=== PATIENT | female | born 1945 | race Caucasian/White ===

== ENCOUNTER 2016-10-22 07:13 | Day surgery (SDC) | payer MEDICARE, OTHER ==
[2016-10-22] VITALS (7 sets, daily range): BP systolic 119–144; BP diastolic 64–74; PULSE 57–81; RESP 10–18; O2SAT 94–100
[~2016-10-22] VITALS: Ht 174 cm; Wt 85.1 kg
[~2016-10-22 07:13] MED LIST: ASCO1500 PO; ASPI325T32 PO; ASTA4CAP PO; CHOL40003 PO; CLOB15CR2 TP; CeFAZolin Inj 2 GM in IV Premix 1 EACH IV ONE; Lactated Ringer's 1,000 ML IV ONE; MAGN400T23 PO; PROZ20 PO; SALM1CAP4 PO; TURM1POW MC; TURM500C3 PO; Vancomycin Inj 1,000 MG in IV Premix 1 EACH IV ONE
[2016-10-22] MEDS ORDERED: Propofol 10,000 mCg/mL 20 mL Inj ONE (07:14)
[2016-10-22] MEDS ORDERED: EPHEDrine/NS 5 mg/mL 5 mL Syringe ONE (07:14)
[2016-10-22] MEDS ORDERED: Glycopyrrolate 0.2 mg/mL 5 mL Inj ONE (07:14)
[2016-10-22] MEDS ORDERED: Ondansetron 2 mg/mL 2 mL Inj ONE (07:14)
[2016-10-22] MEDS ORDERED: Dexamethasone 4 mg/mL Inj ONE (07:14)
[2016-10-22] MEDS ORDERED: Lidocaine PF 1% 30 mL Inj ONE (07:14)
[2016-10-22] MEDS ORDERED: fentaNYL-PF 50 mCg/mL 2 mL Inj ONE (07:14)
--- NOTE | 2016-10-22 08:58 | PCM.HPANE ---
Patient Data Surgeon Admitting Provider: Attending Provider:Jose Ramírez MD Primary Care Physician:Cardiology,[facility] Other Provider:Lizeth Gonzalesingham Anesthesia Reason for Visit Right Knee Arthritis RIGHT KNEE ARTHRITIS Ht/WT & BMI Height (Feet): 5 Height (Inches): 8.50 Weight (Kilograms): 85.1 Body Mass Index 28.00 Allergies Coded Allergies: acetaminophen (Verified Allergy, Unknown, gi upset, 10/18/16) Past Anesthesia History Anesthesia History: Denies:: Abnormal Airway, Anesthesia Reactions, Difficult Intubation, Fam Anesthesia Reaction Diabetes History Hx Diabetes?: No MRSA MRSA: No Medications Hypertension Medication: No Home Meds Incl Beta Padmini: No Reported Medications Ascorbic Acid (Vitamin C)1,500 Mg Tablet.er1,500 Mg PO DAILY 10/18/16 Turmeric Root Extract (Turmeric)500 Mg [id number] Mg PO DAILY 10/18/16 Benedict Oil/[place]-3 Fatty Acids (Benedict Oil 1,000 mg Softgel)1 Each Capsule2 Each PO DAILY 10/18/16 Fluoxetine (Prozac)20 Mg Phqxpos99 Mg PO DAILY Ref 0 10/18/16 Magnesium Oxide (Mag-Oxide)400 Mg [id number] Mg PO DAILY 10/18/16 Clobetasol Propionate 15 Gm Cream..g.15 Gm TP PRN skin irritation 10/18/16 Cholecalciferol (Vitamin D3) (Vitamin D3)4,000 Unit Capsule4,000 Unit PO DAILY 10/18/16 Astaxanthin 4 Mg Capsule8 Mg PO DAILY 10/18/16 Aspirin 325 Mg [id number] Mg PO DAILY #1 BOTTLE 10/18/16 Discontinued Reported Medications Turmeric (Curcumin)1 Gm Powder1 Gm MC DAILY 10/18/16 History History of ENT Problems?: No HEENT History: Denies:: Abnormal Airway Cataracts Difficult Intubation Dysphagia Glaucoma Hearing Problem (slight) Sinus Problem TMJ Hx of Heart Problems?: No Cardiovascular History: Denies:: AICD Abdominal Aortic Aneurism Atrial Fibrillation Cardiac Surgery Edema Heart Murmur Hypertension Irregular Heartbeat Pacemaker Peripheral Vascular Rheumatic Fever Thrombophlebitis Other History/Comments Greater than 4 mets; No CP Hx of Respiratory Problem?: No Respiratory History: Denies:: Asthma COPD Dyspnea Emphysema Oxygen Administration Pneumonia Tuberculosis Use of C-PAP Machine Use of Inhalers / NEBS Hx Neurologic Problems?: No Neurological History: Denies:: Alzheimer's Disease CVA Headaches Multiple Sclerosis Parkinson's Disease Seizures TIA Hx of GI Problems?: Yes Gastrointestinal History: Positive for:: Liver Disease (recovered alcoholic- normal LFT- hates tylenol) Denies:: Cirrhosis Diverticulitis Gall Bladder Disease Gastroesphageal Reflux Gastrointestinal Bleeding Heartburn Hepatitis Hiatal Hernia Rectal Bleeding Hx of Problems?: No Genitourinary History: Denies:: Kidney Stones Urinary Tract Infection Female Hx: Denies:: Currently (hysterectomy ) Problems with Breasts? Skin History: Denies:: History Skin Disorders? Pressure Ulcers Hx Musculoskeletal Problems?: Yes Musculoskeletal History: Positive for:: Back Injury ("bad" spine- ) Joint Replacement (hip x 2, 1 revision hip) Musculoskeletal Trauma (right knee current admission problem) Osteoarthritis Denies:: Fibromyalgia Hx of Psycho/Social Problems?: Yes Psycho Social History: Positive for:: Hx Depression Denies:: Anxiety Hx Surgeries?: Yes (hip surgery, hysterectomy, breast redux ) Hx Any Other Health Problems?: Yes Other History: Denies:: Cancer Thyroid Disease History Blood Transfusions: Positive for:: Accept Blood Products? Blood Transfusions (post hip replacement) Denies:: Blood Transfuse Reaction Hx Diabetes: No Hx Alcohol Use: No (former alcholol (not for 22 years))Hx Substance Use: No Have You Smoked inLast 12 mo: No Stop/Bang S-Snoring: Do You Snore Loudly: No T-Tired: feel tired, fatigued: No O-Obsered: Observed not breath: No P-Blood Pressure: treated: No B- Body Mass Index > 35 kg/m2: No A- Age over 50: Yes N- Neck Large Circumference: No G- Gender Male: No LUISA Total Score: 1 Risk Assessment Category Category 1A: Patient has history of documented sleep apnea, and HAS NOT received any narcotic, sedative or anesthesia administration during this stay. Category 1B: Patient has history of documented sleep apnea, and HAS received any narcotic , sedative or anesthesia administration during this stay Category 2: Patient has SUSPECTED Obstructive Sleep Apnea, and HAS received any narcotic , sedative or anesthesia administration during this stay. Category 3: Patient has SUSPECTED Obstructive Sleep Apnea and HAS NOT received narcotic, sedative or anesthesia administration during this stay. Category 4: Outpatient in Procedural Areas with known sleep apnea or who screen positive for High Risk via the STOP/BANG questionnaire. Exam Exam Vital Signs Vital Signs Date Time Temp Pulse Resp B/P Pulse Ox O2 Delivery O2 Flow Rate FiO2 10/22/16 07:55 36.2 57 18 141/73 96 Room Air General Appearance: Alert, Oriented X3 HEENT/AIRWAY: MP 2 Lungs: Clear to Auscultation, Clear to Percussion Heart: Exam Unremarkable, Regular Rate/Rhythm Meds/Labs/Diagnostics Admission Meds Current Medications Lactated Ringer's 1,000 ml @ 120 mls/hr Q8H20M ONCE IV Last administered on 07:20; Start 10/22/16 at 05:00; Stop 10/22/16 at 13:19 Vancomycin/0.9 % Sod Chloride/ Premix (Vancomycin Inj/ IV Premix) 200 ml @ 133.333 mls/hr PREOP ONCE IV Last administered on 10/22/16 07:58; Start 10/22 at 06:00; Stop 10/22/16 at 07:29; Status DC Plan Impression Patient chart reviewed, patient interviewed and anesthestic plan with risks, benefits, and alternatives discussed, and informed consent obtained. NPO Status: water at 5am ASA Physical Status: ASA2 Mod Systemic Disease Anesthetic Plan: GA Bene/Risks/Altern/Consents: Yes HP Complete Prior to Induction: Yes Other Patient consented to FNB if surgery is converted to TKR Eamon Conde MD Oct 22, 2016 08:58
[2016-10-22] MEDS ORDERED: Bupivacaine Liposome 1.3% 20 mL Inj ONE (09:27)
[2016-10-22] MEDS ORDERED: 0.9% Sodium Chloride 200 ML ONE (09:29)
[2016-10-22] MEDS ORDERED: Lactated Ringer's 500 ML IV PRN (09:52)
[2016-10-22] MEDS ORDERED: Lactated Ringer's 1,000 ML IV SCH (09:52)
[2016-10-22] MEDS ORDERED: EPHEDrine Sulfate 50 mg/mL Inj IVPUSH PRN (09:55)
[2016-10-22] MEDS ORDERED: Phenylephrine 10,000 mCg/mL Inj IVPUSH PRN (09:55)
[2016-10-22] MEDS ORDERED: fentaNYL-PF 50 mCg/mL 2 mL Inj IVPUSH PRN (09:55)
[2016-10-22] MEDS ORDERED: Ondansetron 2 mg/mL 2 mL Inj IVPUSH PRN (09:55)
[2016-10-22] MEDS ORDERED: Atropine 0.4 mg/mL Inj IVPUSH PRN (09:55)
[2016-10-22] MEDS ORDERED: Labetalol 5 mg/mL 4 mL Inj IV PRN (09:55)
[2016-10-22] MEDS ORDERED: HYDROmorphone 1 mg/mL Inj IVPUSH PRN (09:55)
[2016-10-22] MEDS ORDERED: MetoCLOpramide 5 mg/mL 2 mL Inj IVPUSH PRN (09:55)
[2016-10-22] MEDS ORDERED: SODIUM CHLORIDE IV ONE ×2 (10:05→10:48)
[2016-10-22] MEDS: Tranexamic Acid 100 mg/mL 10 mL Inj ONE ×2 (10:05→10:47)
[2016-10-22] MEDS ORDERED: Bupivacaine-MPF 0.25%/EPI 30 mL Inj INJ ONE (10:24)
[2016-10-22] MEDS ORDERED: Gentamicin 40 mg/mL 2 mL Inj IRRIGATION ONE (10:24)
[2016-10-22] MEDS ORDERED: Bupivacaine Liposome 1.3% 20 mL Inj INFILTRATE ONE (10:24)
--- NOTE | 2016-10-22 12:07 | DRSVH ---
PROCEDURE: X-RAY RIGHT KNEE, ONE OR TWO VIEWS ([id number]) INDICATIONS: CHECK ALIGNMENT. TECHNIQUE: 2 views of the knee acquired. COMPARISON: [facility], CR, XR KNEE 3VW RT, 10/09/2016, 8:35. FINDINGS: Bones: Patient is status post lateral unicompartmental knee joint arthroplasty. Hardware components are in expected positions. There is slight lateral migration of the tibia with respect to the femur . Visualized bony structures are intact. Soft tissues: Overlying postoperative changes are noted. IMPRESSION: 1. Expected postsurgical changes status post lateral unicompartmental arthroplasty. Dictated by: Asaf Lake M.D. on 10/22/2016 at 12:05 Approved by: Asaf Lake M.D. on 10/22/2016 at 12:06
--- NOTE | 2016-10-23 01:22 | OP ---
[address] [address] OPERATIVE REPORT PATIENT: MIKE SORIA : 1945 MR#: [id number] ADMIT: 10/22/2016 JOB ID: [id number] DATE OF SURGERY: 10/22/2016 PREOPERATIVE DIAGNOSIS(ES): Severe osteoarthritis, right lateral compartment. POSTOPERATIVE DIAGNOSIS(ES): Severe osteoarthritis, right lateral compartment PROCEDURE: Diagnostic arthroscopy to assess the medial compartment, followed by a lateral unicompartmental knee arthroplasty. SURGEON: Jose Ramírez MD QUILL FIXER: Gladys Yun PA-C Pull Worker required due to the major complexity of the procedure. COMPLICATIONS: None. DESCRIPTION OF PROCEDURE: The patient was prepped and draped in the usual was sterile fashion. An anterolateral portal was utilized to visualize the medial compartment. Normal pristine articular cartilage was encountered. There was a small medial meniscal tear at the midportion. It was a small tear felt to be mechanically insignificant and was therefore accepted. The arthroscope was removed and an anterolateral arthrotomy was performed. Dissection carried down. Patellar osteophyte and frontal bossing was removed. The alignment apparatus was utilized and the distal femoral and proximal tibial cuts were made. Tibial cut was completed with a sagittal saw. The bone fragments were removed. A -2 distal femoral cut in order to help correct the valgus was made, removing only 4 mm of distal femoral bone. The femur was sized to a D chamfer cutting block, fixed in appropriate position. Rotation and drill holes and chamfer cuts were made. The tibia was sized to a #4 tibia. Trial reduction was performed and a 9 mm polyethylene seemed to provide good correction without over-tightening the lateral side. Attempts to use a thicker polyethylene to correct for the valgus produced excessive soft tissue tightness on the lateral side. The wounds were irrigated with sterile irrigant. All meniscal tissue and osteophytes were carefully removed from the knee. Pressurized lavage was followed by pressurized cementation of the components. Excess cement was removed during the curing process. The final construct was assembled. Polyethylene was snapped securely into place. The deep Hemovac drain was left. The wounds were irrigated with pressurized lavaged. Deep closure with #2 Quill deep followed by 2-0 Vicryl, 3-0, and a 4-0 intracuticular stitch. Steri-Strips were applied. A sterile dressing was applied. She was taken to the recovery room in stable condition. She tolerated the procedure well. There were no complications. Standard postoperative plan recommended.
--- NOTE | 2016-10-23 09:26 | PCM.ANEP2 ---
Post Anesthesia Evaluation ASA/CMS Post Anesthesia VS in Patient's Normal Range?: Yes Resp Stable; Airway Patent?: Yes CV Function & Hydration Stable: Yes Mental Status Recovered?: Yes Pain control Satisfactory?: Yes N/V Control Satisfactory?: Yes Eamon Conde MD Oct 23, 2016 09:26
--- NOTE | 2016-10-23 09:26 | PCM.ANEP1 ---
Post Anesthesia Phase 1 PACU Phase 1 Assessment Anesthetic Administered: GA Level of Alertness: Awake, talking GABRIEL's with Equal Strength: Yes Pain: No Nausea or Vomiting: No Oxygen Delivery: Simple Mask Lungs: Clear to Auscultation, Clear to Percussion Eamon Conde MD Oct 23, 2016 09:26
== END 2016-10-22 23:59 | disposition home or self-care (01) ==
LOC: SAS 07:13
PROVIDERS: ATTEND Orthopaedic Surgery
DX: M17.11 Unilateral primary osteoarthritis, right knee (principal); M25.561 Pain in right knee; Z79.82 Long term (current) use of aspirin
CPT/HCPCS: 27446; 73560; C1713; C1776; J0690; J1100; J1580; J2405; J3010; J3370; J7030; J7120